=== PATIENT | female | born 1955 | race Caucasian/White ===

== ENCOUNTER 2020-02-17 20:43 | Observation (INO) | payer MEDICARE ==
[2020-02-17] MEDS ORDERED: Aspirin Chewable 81 MG TAB ONE (21:01)
[2020-02-17] MEDS ORDERED: Nitroglycerin 0.4 MG TAB 1 EACH ONE (21:01)
[2020-02-17 21:16] LABS: #Basophils 0.1 thou/uL (0.0-0.2); #Eosinphils 0.3 thou/uL (0.0-0.7); #Lymphocytes 3.8 thou/uL (1.20-3.40); #Neutrophils 5.6 thou/uL (1.40-6.50); %Basophils 0.7 % (0.0-1.0); %Eosinophils 2.7 % (0.0-10.0); %Lymphocytes 35.5 % (21.0-51.0); %Monocytes 9.2 % (0.0-10.0); %Neutrophils 51.9 % (42.0-75.0); Hemoglobin 14.7 g/dL (12.0-16.0); Mean Corpuscular Hemoglobin 29.5 pg (27.0-31.0); Mean Corpuscular Volume 89.4 fL (78.0-98.0); Mean Platelet Volume 8.5 fL (7.4-10.4); Platelet Count 288 thou/uL (130-400); RBC Distribution Width 12.4 % (11.5-14.5); Red Blood Cell (RBC) Count 4.97 mill/uL (4.20-5.40); White Blood Cell (WBC) Count 10.8 thou/uL (4.8-10.8)
--- NOTE | 2020-02-17 21:26 | RAD ---
PORTABLE CHEST: 02/17/20 HISTORY: Chest pain. COMPARISON: 2004. Lungs are clear. Vasculature normal. Heart size normal. IMPRESSION: No acute findings. POS: AGW
[2020-02-17 21:36] LABS: ALT (SGPT) 9 U/L (8-55); AST (SGOT) 11 U/L (5-34); Albumin 4.2 g/dL (3.4-4.8); Alkaline Phosphatase 116 U/L (40-110); Anion Gap 14 mmol/L (10-20); BUN (Urea Nitrogen) 12 mg/dL (9.8-20.1); Bilirubin, Total 0.3 mg/dL (0.2-1.2); CK (CPK) 26 U/L (29-168); Calc. Creatinine Clearance 0 mL/min (70-130); Calcium 9.1 mg/dL (7.8-10.44); Carbon Dioxide 23 mmol/L (23-31); Chloride 107 mmol/L (98-107); Estimated GFR-MDRD 48; Globulin 3.2 g/dL (2.4-3.5); Glucose 128 mg/dL (80-115); Potassium 4.2 mmol/L (3.5-5.1); Protein, Total 7.4 g/dL (6.0-8.3); Sodium 140 mmol/L (136-145)
[2020-02-17] MEDS ORDERED: Nitroglycerin 2% Ointment 1 INCH/1 GM Packet ONE (21:56)
[2020-02-17] MEDS ORDERED: Morphine 4 MG/ML VIAL ONE (22:24)
[2020-02-17] MEDS ORDERED: Ondansetron PF 4 MG/2 ML Vial ONE (22:24)
[2020-02-17] MEDS ORDERED: Acetaminophen 650 MG Suppository PR PRN (23:22)
[2020-02-17] MEDS ORDERED: Acetaminophen 325 MG TAB PO PRN (23:22)
[2020-02-17] MEDS ORDERED: Nitroglycerin 0.4 MG TAB (25 Tab Bottle) PO PRN (23:28)
[2020-02-17] MEDS ORDERED: D5 1/2 NS 500 ML IV SCH (23:45)
--- NOTE | 2020-02-17 23:49 | PDOC.HHP ---
Hospitalist HPI - History of Present Illness Chest pain History of Present Illness: Patient presents due to persisting left sided chest pain that lasted for about an hour. She was resting when it started and states she had three different types of pains. A squeezing and stabbing pain that was intermittent, recurring every few minutes and eased after given Nitro. She has an aching pressure in the left side of her chest that is non radiating. It is currently a 5/10 in severity and has remained constant. The stabbing and squeezing pain have both resolved and occasionally radiating across her chest to the right side. At times radiating to the under arm region. Denies any associated SOB, diaphoresis , N/V. Reports a chronic cough that is unchanged. No hemoptysis. No recent travel. Denies any trauma/injury. No worse with any movement. She has issues with GERD and initially took Tums as she suspected it was due to reflux and this did not help. Reports being concerned due to history of CAD. States she had a minor heart attack years ago. She had a heart cath which she states was normal. Reports last stress test was in the . Does not follow with a purchasing assistant currently. ED Course: EKG: No ST changes or T wave abnormalities. RBBB noted, unknown if old or new. Chest xray unremarkable. Initial labs showed normal troponin. BUN 12, Creatinine 1.14, GFR 48. No baseline for comparison. No reported known history of CKD. FBC unremarkable. Given Aspirin 324 mg PO. Nitro SL x 2 and Nitrobid Given, 1 inch. Also given 4 mg of Morphine. Hospitalist ROS - Review of Systems Constitutional: denies: fever, chills, sweats, weakness, malaise, other Eyes: denies: pain, vision change, conjunctivae inflammation, eyelid inflammation, redness, other ENT: denies: ear pain, ear discharge, nose pain, nose discharge, nose congestion , mouth pain, mouth swelling, throat pain, throat swelling, other Respiratory: reports: cough (chronic and unchanged, dry). denies: dry, shortness of breath, hemoptysis, SOB with excertion, pleuritic pain, sputum, wheezing, other Cardiovascular: reports: chest pain (squeezing/stabbing resolved, pressure remains at 5/10 in severity and nonradiating.). denies: palpitations, orthopnea , paroxysmal noc. dyspnea, edema, light headedness, other Gastrointestinal: denies: nausea, vomiting, abdominal pain, diarrhea, constipation, melena, hematochezia, other Genitourinary: denies: dysuria, frequency, incontinence, hematuria, retention, other Musculoskeletal: denies: neck pain, shoulder pain, arm pain, back pain, hand pain, leg pain, foot pain, other Skin: denies: rash, lesions, radha, bruising, other Neurological: denies: weakness, numbness, incoordination, change in speech, confusion, seizures, other Hospitalist History - Past Medical History Source: patient Cardiac: reports: CAD Pulmonary: reports: Other (Sarcoidosis) Gastrointestinal: reports: GERD - Past Surgical History Past Surgical History: reports: Hysterectomy Other Surgical History: Multiple bilateral leg surgeries due to accident - Family History Family History: reports: cardiac disorder (CAD/LA) - Social History Smoking Status: Never smoker Alcohol: reports: None Drugs: reports: none Living Situation: Alone Activity level: uses cane/walker (for long distances) - Exam General Appearance: NAD Eye: PERRL, anicteric sclera ENT: normocephalic atraumatic, no oropharyngeal lesions, moist mucosa Neck: supple, no lymphadenopathy Heart: RRR, no murmur, no gallops, no rubs, normal peripheral pulses Respiratory: CTAB, normal chest expansion, no tachypnea Respiratory - other findings: no chest wall tenderness with palpation Gastrointestinal: soft, non-tender, non-distended, normal bowel sounds, no guarding, no rigidity Extremities: no edema Skin: no rashes Neurological: cranial nerve grossly intact, normal sensation to touch Musculoskeletal: normal tone, normal strength Psychiatric: normal affect, normal behavior, A&O x 3 Hospitalist Results - Labs Result Diagrams: 02/17/20 20:51 02/17/20 20:51 Lab results: WBC 10.8 thou/uL (4.8-10.8) 02/17/20 20:51 Hgb 14.7 g/dL (12.0-16.0) 02/17/20 20:51 Hct 44.4 % (36.0-47.0) 02/17/20 20:51 MCV 89.4 fL (78.0-98.0) 02/17/20 20:51 Plt Count 288 thou/uL (130-400) 02/17/20 20:51 Neutrophils % 51.9 % (42.0-75.0) 02/17/20 20:51 Sodium 140 mmol/L (136-145) 02/17/20 20:51 Potassium 4.2 mmol/L (3.5-5.1) 02/17/20 20:51 Chloride 107 mmol/L (98-107) 02/17/20 20:51 Carbon Dioxide 23 mmol/L (23-31) 02/17/20 20:51 BUN 12 mg/dL (9.8-20.1) 02/17/20 20:51 Creatinine 1.14 mg/dL (0.6-1.1) H 02/17/20 20:51 Glucose 128 mg/dL (80-115) H 02/17/20 20:51 Calcium 9.1 mg/dL (7.8-10.44) 02/17/20 20:51 Total Bilirubin 0.3 mg/dL (0.2-1.2) 02/17/20 20:51 AST 11 U/L (5-34) 02/17/20 20:51 ALT 9 U/L (8-55) 02/17/20 20:51 Alkaline Phosphatase 116 U/L (40-110) H 02/17/20 20:51 Creatine Kinase 26 U/L (29-168) L 02/17/20 20:51 Troponin I 0.011 ng/mL (< 0.028) 02/17/20 20:51 Serum Total Protein 7.4 g/dL (6.0-8.3) 02/17/20 20:51 Albumin 4.2 g/dL (3.4-4.8) 02/17/20 20:51 Hospitalist H&P A/P - Problem (1) Chest pain Code(s): R07.9 - CHEST PAIN, UNSPECIFIED Status: Acute (2) Creatinine elevation Code(s): R79.89 - OTHER SPECIFIED ABNORMAL FINDINGS OF BLOOD CHEMISTRY Status : Acute (3) CAD (coronary artery disease) Code(s): I25.10 - ATHSCL HEART DISEASE OF [place] CORONARY ARTERY W/O ANG PCTRS Status: Chronic (4) History of hypoglycemia Code(s): Z86.39 - PERSONAL HISTORY OF ENDO, NUTRITIONAL AND METABOLIC DISEASE Status: Chronic (5) GERD (gastroesophageal reflux disease) Code(s): K21.9 - GASTRO-ESOPHAGEAL REFLUX DISEASE WITHOUT ESOPHAGITIS Status: Chronic - Plan Plan: Cardiac monitoring. Trend troponins. Add-on Mg+, TSH, BNP, D-Dimer. Stress test in AM. Lipid panel with AM labs. Continue daily aspirin. Echo to be done as well. NPO at midnight. Monitor renal function. Gentle IV hydration. CODE STATUS: FULL Surrogate decision maker is her son: Joe Corey.
[2020-02-18] MEDS ORDERED: Dextrose 5 % And 0.9 % NaCl 1,000 ML IV SCH (03:45)
[2020-02-18] MEDS ORDERED: Dextrose 5 %-0.45 % NaCl 1,000 ML IV SCH (03:45)
[2020-02-18 04:43] LABS: #Basophils 0.1 thou/uL (0.0-0.2); #Eosinphils 0.2 thou/uL (0.0-0.7); #Monocytes 0.7 thou/uL (0.11-0.59); #Neutrophils 4.5 thou/uL (1.40-6.50); %Basophils 0.7 % (0.0-1.0); %Eosinophils 2.7 % (0.0-10.0); %Lymphocytes 26.5 % (21.0-51.0); %Monocytes 9.8 % (0.0-10.0); %Neutrophils 60.3 % (42.0-75.0); Hemoglobin 12.8 g/dL (12.0-16.0); Mean Corpuscular HGB CONC 31.9 g/dL (32.0-36.0); Mean Corpuscular Hemoglobin 28.7 pg (27.0-31.0); Mean Platelet Volume 8.1 fL (7.4-10.4); Platelet Count 216 thou/uL (130-400); RBC Distribution Width 12.3 % (11.5-14.5); Red Blood Cell (RBC) Count 4.46 mill/uL (4.20-5.40); White Blood Cell (WBC) Count 7.5 thou/uL (4.8-10.8)
[2020-02-18 05:00] LABS: Anion Gap 10 mmol/L (10-20); BUN (Urea Nitrogen) 15 mg/dL (9.8-20.1); Calc. Creatinine Clearance 0 mL/min (70-130); Calcium 9.1 mg/dL (7.8-10.44); Carbon Dioxide 27 mmol/L (23-31); Chloride 107 mmol/L (98-107); Estimated GFR-MDRD 61; Glucose 128 mg/dL (80-115); Potassium 4.6 mmol/L (3.5-5.1); Sodium 139 mmol/L (136-145)
[2020-02-18] MEDS ORDERED: Ondansetron PF 4 MG/2 ML Vial SLOW IVP PRN (05:49)
[2020-02-18 05:54] VITALS: BMI 31.1
[2020-02-18] MEDS ORDERED: Famotidine 20 MG TAB PO SCH (09:00)
[2020-02-18] MEDS ORDERED: Aspirin 81 mg Enteric Coated Tablet PO SCH (09:00)
[2020-02-18] MEDS ORDERED: ADENOSINE 60 MG/20 ML VIAL ONE (12:10)
--- NOTE | 2020-02-18 12:11 | EKG ---
Test Reason : Blood Pressure : / mmHG Vent. Rate : 105 BPM Atrial Rate : 105 BPM P-R Int : 168 ms QRS Dur : 116 ms QT Int : 358 ms P-R-T Axes : 030 -28 026 degrees QTc Int : 473 ms Sinus tachycardia Right bundle branch block Voltage criteria for left ventricular hypertrophy Abnormal ECG Confirmed by KAREN HOYOS ([id number]), general expeditor ROBYN AZUL ([id number] on 02/18/2020 12:10:44 PM Referred By: Confirmed By:KAREN Lipscomb
--- NOTE | 2020-02-18 13:07 | NM ---
EXAM: NM Cardiac Stress W EF WF PROVIDED CLINICAL HISTORY: Chest pain COMPARISON: None FINDINGS: No significant reversible defect is seen between the stress and resting acquisitions. Rotating planar images demonstrate prominent soft tissue attenuation. Gated images show normal ventricular wall motion and wall thickening. Calculated left ventricular ejection fraction is 61%. IMPRESSION: 1. Normal myocardial perfusion study without evidence of a reversible defect seen to suggest ischemia . 2. LVEF of 61%.
[2020-02-18 15:41] VITALS: BP 125/70; TEMP 97.9
--- NOTE | 2020-02-18 15:46 | ULT ---
BILATERAL LOWER EXTREMITY VENOUS DOPPLER ULTRASOUND: 02/18/20 HISTORY: Bilateral lower extremity pain and edema. TECHNIQUE: Kelley scale ultrasound with color flow and spectral Doppler imaging of the deep venous systems of the lower extremities is performed bilaterally. FINDINGS: There is good flow, compression, and augmentation noted in the common femoral, femoral, deep femoral, popliteal, posterior tibial and greater saphenous veins on either side. IMPRESSION: No evidence of DVT in either lower extremity. POS: CHRISTIANO
[2020-02-18] MEDS ORDERED: Lidocaine 2% Viscous Solution 10 ML, Aluminum & Magnesium Hydroxide 30 ML SSW SCH (16:15)
--- NOTE | 2020-02-19 06:08 | EKG ---
Test Reason : STAT Blood Pressure : / mmHG Vent. Rate : 076 BPM Atrial Rate : 076 BPM P-R Int : 176 ms QRS Dur : 120 ms QT Int : 404 ms P-R-T Axes : 036 002 045 degrees QTc Int : 454 ms Normal sinus rhythm Right bundle branch block Abnormal ECG When compared with ECG of 30-DEC-2004 09:42, Right bundle branch block is now Present Confirmed by DR. Tyesha TORRES ([id number]) on 02/19/2020 6:07:44 AM Referred By: LEIDY Confirmed By:DR. Tyesha TORRES
--- NOTE | 2020-02-19 13:47 | DIS ---
DATE OF ADMISSION: 02/17/2020 DATE OF DISCHARGE: 02/18/2020 HOSPITAL COURSE: Ms. Corey is a 64-year-old female, who presented with left-sided squeezing chest pain. She was diagnosed with after cardiac workup was negative including a stress test. She was diagnosed with dyspepsia. The patient has been on pantoprazole 20 mg daily. Her dosage was increased to 40 mg daily. In considering her age, she was referred to Gastroenterology as an outpatient for possible further workup of dyspepsia with an EGD. PHYSICAL EXAMINATION: VITAL SIGNS: Blood pressure 125/70, pulse 93, respiratory rate 16, oxygen saturation 100% on room air, temperature 97.9. GENERAL: No apparent distress. Alert and oriented. ENT: Normocephalic and atraumatic. No oropharyngeal lesions. Moist mucosa. NECK: Supple. No lymphadenopathy. HEART: Regular rate and rhythm. No murmurs, gallops, or rubs. Normal peripheral pulses. RESPIRATORY: Clear to auscultation bilaterally. Normal chest expansion. No tachypnea. GI: Soft, nontender, nondistended. Normal bowel sounds. EXTREMITIES: Bilateral lower extremity pitting edema. Duplex was carried out and proximal DVT was ruled out. NEUROLOGIC: Cranial nerves grossly intact. Normal sensation to touch. MUSCULOSKELETAL: Normal tone, normal strength. PSYCHIATRIC: Normal affect, normal behavior, alert and oriented x3. DISCHARGE MEDICATIONS: New medication; none. Change medications; Pantoprazole was changed from 20 mg to 40 mg in the morning before breakfast. Stopped medications; none. Job ID: [id number]
== END 2020-02-18 17:58 | disposition home or self-care (01) ==
LOC: ERS 20:43 → 2SE 22:40
PROVIDERS: ADMIT Internal Medicine; ATTEND Internal Medicine
DX: K21.9 Gastro-esophageal reflux disease without esophagitis (principal); I25.10 Atherosclerotic heart disease of native coronary artery without angina pectoris; Z79.899 Other long term (current) drug therapy; Z91.018 Allergy to other foods; Z91.048 Other nonmedicinal substance allergy status
CPT/HCPCS: 71045; 78452; 80048; 80053; 82550; 83735; 83880; 84443; 84484 ×3; 85025 ×2; 85379; 93005 ×2; 93017; 93306; 93970; 94760; 96361; 96374; 96375; 96376; 97139; 99285; A9500; G0378 ×3; 36415; 93010; J0153; J2270; J2405

== ENCOUNTER 2022-02-24 15:02 | Emergency (ER) | payer MEDICARE | END 2022-02-24 15:49 | disposition home or self-care (01) | LOC: ERS 15:02 | DX: S90.121A Contusion of right lesser toe(s) without damage to nail, initial encounter (principal); I25.2 Old myocardial infarction; K21.9 Gastro-esophageal reflux disease without esophagitis; W22.8XXA Striking against or struck by other objects, initial encounter ==